=== PATIENT | female | born 1985 | race Caucasian/White ===

== ENCOUNTER 2017-05-05 04:27 | Emergency (ER) | payer SELFPAY ==
[~2017-05-05] VITALS: Ht 160 cm; Wt 84.0 kg
[2017-05-05 04:35] VITALS: Ht 160 cm; Wt 84.0 kg
[2017-05-05] MEDS ORDERED: IBUPROFEN 600 MG TAB PO ONE (05:30)
[2017-05-05 06:27] LABS: URINE BLOOD (Dip) POC 2+ (NEGATIVE)
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
[2017-05-05] MEDS ORDERED: IBUP-1542 PO (08:18)
[2017-05-05] MEDS ORDERED: TRAM50TA2 PO (08:19)
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
== END 2017-05-05 08:35 | disposition home or self-care (01) ==
LOC: FTE 04:27
DX: S33.5XXA Sprain of ligaments of lumbar spine, initial encounter (principal); V89.2XXA Person injured in unspecified motor-vehicle accident, traffic, initial encounter
CPT/HCPCS: 72040; 72100; 81003